=== PATIENT | female | born 1950 | race Caucasian/White ===

== ENCOUNTER 2016-12-31 10:15 | Inpatient (IN) | payer BC, OTHER ==
--- NOTE | 2016-12-31 10:28 | HP ---
SUPERVISING PHYSICIAN: Bubba Lake M.D. CHIEF COMPLAINT: Fever, sore throat, shortness of breath and ankle pain. HISTORY OF PRESENT ILLNESS: Ms. Wolfe is a 66 year-old female patient of Dr. Ann that was seen in the clinic today. She had been seen previously this past weekend on Friday for fever, sore throat and some nasal congestion, and was diagnosed with Group A Strep infection after her Strep screen was positive. She was given Bicillin L-A 1.2 million units and today in the clinic she reports that she has had no improvement in her symptoms, and continues to run 101 fever. Flu swab on Friday was negative. Today, her flu swab showed positive for Influenza A. She was noted to have some continuation of nasal congestion and a fever in the clinic of 100.6. She was satting 87% on room air. She also was complaining of right ankle pain. She noted that this weekend she had tripped over a dog at home and twisted her ankle. X-rays performed in the clinic showed that the patient had a obliquely oriented fracture through the lateral malleolus. X-ray completed in the clinic per radiology interpretation showed changes consistent with chronic obstructive pulmonary disease with some mild cardiomegaly but no infiltrates, pleural effusions or pneumothoraces. Given that the patient has had no improvement in her symptoms and now is showing an infection along with Group A Strep and the newly discovered ankle fracture, the patient was directly admitted to the hospital with concerns for exacerbation of COPD with her having significant dyspnea with minimal exertion showing 87% saturation on room air. She was admitted for exacerbation of COPD for further treatment and evaluation. PAST MEDICAL HISTORY: 1. Hyperlipidemia. 2. Hypertension. 3. Gastroesophageal reflux disease. 4. Osteoarthritis. 5. Rheumatoid arthritis. PAST SURGICAL HISTORY: 1. Cholecystectomy in 1971. 2. Hysterectomy in 1989. CURRENT MEDICATIONS: 1. Ergocalciferol 50,000 units p.o. Wednesdays and Saturdays. 2. Vitamin B complex with C one tablet daily. 3. Nystatin triamcinolone 1 applied p.r.n. 4. Prednisone 5 mg daily. 5. Hydroxychloroquine sulfate 200 mg twice a day. 6. Mobic 7.5 mg twice daily. 7. Folic acid 1 mg daily. 8. Enbrel 50 mg weekly subcue. 9. Calcium with Vitamins D and K 1 tablet daily. 10. Tramadol 50 to 100 mg every 4 hours for pain. 11. Methotrexate 7 each weekly. 12. Nasacort allergy spray 55 mcg nasally twice daily as needed. 13. Omeprazole 40 mg twice daily. 14. Citalopram 20 mg daily. 15. Diovan 160 mg daily. ALLERGIES: AMOXICILLIN. FAMILY HISTORY: Father had a stroke. Mother has history of COPD. 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 She is and has 3 children. She has never smoked. Has never drank alcohol. REVIEW OF SYSTEMS: CONSTITUTIONAL: Positive for fevers. Negative for any fatigue but general malaise is noted. HEENT: Per History of Present Illness. RESPIRATORY: Positive for a recent cough and significant dyspnea with any minima exertion showing hypoxia with 83% saturation at rest on room air. CARDIOVASCULAR: Denies any chest pains, palpitations, syncopal episodes. ABDOMEN: Denies any nausea or vomiting, diarrhea or constipation. EXTREMITIES: Arthralgia secondary to osteoarthritis and rheumatoid arthritis. INTEGUMENT: Denies any rashes. NEUROLOGIC: She denies any syncopal episodes, headaches or neurological deficits or any changes in vision. PHYSICAL EXAMINATION: VITAL SIGNS: Temperature 100.4 on admission with heart rate 112, blood pressure 134/85, respirations 20. She was satting 83% on room air at rest. Admission weight 93.5 kg. GENERAL: The patient appears ill. She is well dressed, well hydrated, well nourished and alert. HEENT: Tympanic membranes are clear bilaterally. Oropharynx shows posterior pharynx is erythematous with no lesions. Oral mucosa is pink and moist. NECK: No jugular venous distention. CHEST: Lung sounds are diminished throughout with diffuse wheezing both inspiratory and expiratory with no notable rhonchi or rales heard. CARDIOVASCULAR: ABDOMEN: Obese but soft, non-tender. Positive bowel sounds. EXTREMITIES: No clubbing or cyanosis. Right lower extremity on the ankle and foot shows some ecchymotic areas and mild edema, but no deformities. Pulses are 2+ bilaterally. NEUROLOGIC: She is alert and oriented times three. Cranial nerves II-XII are grossly intact. Facial features are symmetrical. Extraocular movements are within normal limits. There is no nystagmus. There are no notable neuromotor deficits. LABORATORY: White count completed in clinic shows 7.5 with hemoglobin 13.5, hematocrit 41.5, platelet count was within normal limits. Differential currently shows no left shift. Flu A and flu B shows positive for A, negative for B. She had a group A Strep that was positive on Friday. CMP is pending. RADIOLOGY: A chest x-ray performed in the clinic per radiology interpretation shows no evidence of infiltrates to suggest pneumonia at time of x-ray. Ankle x -ray of her right ankle showing obliquely oriented fracture through the lateral malleolus with ankle mortise intact with extensive soft tissue swelling noted. ASSESSMENT: 1. Acute exacerbation of chronic obstructive pulmonary disease with the patient having Influenza A infection complicated by a Streptococcus A infection with O2 saturation indicating hypoxemia with O2 sat showing 83% on room air at rest after breathing treatments improving to the mid 90s. 2. Influenza A illness. 3. Rheumatoid arthritis treated with multiple immune modulating drugs placing the patient at risk for complications secondary to both an Influenza viral infection and possibly underlying bacterial pneumonia. 4. Right distal fibular fracture status post same level fall. 5. Hypertension. 6. Gastroesophageal reflux disease. PLAN: The patient is directly admitted to the hospital for continuation of treatment and evaluation. She was started on antibiotics parenterally that included Levaquin as well as antiviral coverage with Tamiflu. She will be provided DuoNeb treatments q.i.d. with aggressive pulmonary hygiene and started on Solu-Medrol at 125 mg every 6 hours for 3 doses with anticipation of tapering over the next 48 hours. Will plan to repeat laboratory studies in the morning as well as a chest x-ray. She will be started on DVT prophylaxis as per protocol. Once her medications have been updated and verified in the computer, those will be resumed. Anticipate length of stay to be 2 to 3 days. The right ankle fracture will be treated with a fracture boot which will be then followed in the outpatient setting by Dr. Ann, her primary care provider. Until then, will continue to monitor the patient closely and treat appropriately. #[id number] [facility]
[2016-12-31] MEDS ORDERED: ACETAMINOPHEN 325 MG TAB PO PRN (11:42)
[2016-12-31] MEDS ORDERED: SODIUM CHLORIDE 0.9% (FLUSH) 10 ML SYG IV PRN (11:42)
[2016-12-31] MEDS ORDERED: IBUPROFEN 400 MG TAB PO PRN (11:42)
[2016-12-31] MEDS ORDERED: ALBUTEROL SULFATE 2.5 MG/3 ML VIAL NEB PRN (11:42)
[2016-12-31] MEDS ORDERED: IV SET AND CAP CHANGE INJ INJ SCH (12:00)
[2016-12-31] MEDS: IPRATROPIUM/ALBUTEROL 3 ML VIAL INH SCH ×3 (12:15→21:34)
[2016-12-31] MEDS: HYDROcodone 7.5MG/APAP 325MG 1 EA TAB PO PRN ×2 (12:36→22:17)
[2016-12-31] MEDS: levoFLOXacin 500 MG TAB PO SCH (12:36)
[2016-12-31] MEDS: methylPREDNISolone SODIUM SUC 125 MG/2 ML VIAL IV SCH ×2 (12:39→18:26)
[2016-12-31] MEDS: OSELTAMIVIR 75 MG CAP PO SCH ×2 (12:39→22:04)
--- NOTE | 2016-12-31 18:17 | PCM.CORE ---
Physician DVT/VTE - Nurse DVT Assessment & Total Each Risk Factor Represents 5 Points: Hip,Pelvis,leg Fx <1month Each Risk Factor Represents 1 Point: Age 41-60 Each Risk Factor is 1 Point: Serious Lung disease (pnemonia <1month, COPD, emphysema,etc) DVT Assessment Score: 7 - 5 or more Very High Risk Treatments: Early Ambulation *, Sequential Compression Device Pharmacological: Enoxaparin 40mg SQ Daily
[2016-12-31] MEDS: ENOXAPARIN SODIUM 40 MG/0.4 ML SYG SUBCU SCH (18:26)
[2016-12-31] MEDS: FOLIC ACID 1 MG TAB PO SCH (22:03)
[2016-12-31] MEDS: MELOXICAM 7.5 MG TAB PO SCH (22:04)
[2016-12-31] MEDS: SODIUM CHLORIDE 0.9% (FLUSH) 10 ML SYG IV SCH (22:04)
[2017-01-01] MEDS: methylPREDNISolone SODIUM SUC 125 MG/2 ML VIAL IV SCH ×2 (00:10→05:46)
[2017-01-01] MEDS: OMEPRAZOLE CAP 20 MG CAP PO SCH (05:48)
--- NOTE | 2017-01-01 07:19 | RAD ---
EXAM DESCRIPTION: XR CHEST 2 VIEWS CLINICAL HISTORY: Pneumonia COMPARISON: None Available. TECHNIQUE: Two-views of the chest. FINDINGS: Heart size is normal. Tortuous aorta. Lungs are clear. No acute osseous injury. IMPRESSION: No acute chest process Electronically signed by: Bubba Davidson MD 01/01/2017 07:18
[2017-01-01] MEDS: IPRATROPIUM/ALBUTEROL 3 ML VIAL INH SCH ×4 (08:16→20:51)
[2017-01-01] MEDS ORDERED: VITAMINS D PO SCH (09:00)
[2017-01-01] MEDS ORDERED: CALCIUM PO SCH (09:00)
[2017-01-01] MEDS ORDERED: [UNRECOGNIZED DRUG - OTHER] PO SCH (09:00)
[2017-01-01] MEDS ORDERED: ERGOCALCIFEROL 50000 UNIT PO SCH (09:00)
[2017-01-01] MEDS ORDERED: BENZOCAINE-MENTH LOZ (CEPACOL) 1 EA LOZ MT ONE ×5 (09:40→20:42)
[2017-01-01] MEDS: BENZOCAINE-MENTH LOZ (CEPACOL) 1 EA LOZ MT PRN ×6 (09:47→20:48)
[2017-01-01] MEDS: CITALOPRAM HBR 20 MG TAB PO SCH (09:47)
[2017-01-01] MEDS: MELOXICAM 7.5 MG TAB PO SCH ×2 (09:48→20:48)
[2017-01-01] MEDS: FOLIC ACID 1 MG TAB PO SCH ×2 (09:49→20:49)
[2017-01-01] MEDS: VALSARTAN 80 MG TAB PO SCH (09:50)
[2017-01-01] MEDS: NON-FORMULARY MEDICATION 1 EA MIS PO SCH (09:50)
[2017-01-01] MEDS: [UNRECOGNIZED DRUG - OTHER] PO SCH (09:50)
[2017-01-01] MEDS: B COMPLEX PO SCH (09:50)
[2017-01-01] MEDS: OSELTAMIVIR 75 MG CAP PO SCH ×2 (11:33→20:48)
[2017-01-01] MEDS: levoFLOXacin 500 MG TAB PO SCH (11:33)
[2017-01-01] MEDS: HYDROcodone 7.5MG/APAP 325MG 1 EA TAB PO PRN ×2 (11:33→20:48)
[2017-01-01] MEDS: SODIUM CHLORIDE 0.9% (FLUSH) 10 ML SYG IV SCH ×2 (11:37→20:49)
[2017-01-01] MEDS ORDERED: SODIUM CHLORIDE 0.9% 10 ML VIAL INJ PRN (13:13)
[2017-01-01] MEDS: ENOXAPARIN SODIUM 40 MG/0.4 ML SYG SUBCU SCH (18:11)
--- NOTE | 2017-01-01 20:05 | PN ---
DATE: 01/01/17 SUBJECTIVE: The patient is sitting up in the bed. Her appetite is much better. Her fever is gone at this time. She seems to have more energy. She admits that when she came into the hospital with the elevated temperature of 102 that she does not remember a lot about what was happening at that time. Still with a slight cough but her sore throat is also improved as well. OBJECTIVE: Currently afebrile, pulse 76, blood pressure 152/87, pulse oximetry 94%. Weight is 94.7. LUNGS: Generally clear to auscultation. HEART: Tones regular. ABDOMEN: Soft and obese. The patient is awake and alert, feeling much improved. She has been on a fairly large dose of corticosteroids and this will be tapered and observed. LABORATORY: White count today is 4,600, hemoglobin 13.7. Chemistry shows potassium 4.3, BUN 14, creatinine 0.75, glucose 191. Urinalysis generally clean. Blood cultures are negative. Sputum culture is pending, results by tomorrow. X-RAY: Chest x-ray is within normal limits. ASSESSMENT: 1. Chronic obstructive pulmonary disease with an acute exacerbation. 2. Acute Influenza A viral infection with high fever and worsening symptoms having failed outpatient therapy. 3. Acute Streptococcus A infection of the throat having received Bicillin injection with no adverse reactions at this time. 4. Mild hypoxia with pulse oximetry 83%. 5. Chronic rheumatoid arthritis. 6. Acute distal fibular fracture after a fall recently when struck on the back of the knee by a 60 pound Labrador dog. 7. Hypertension. 8. Gastroesophageal reflux disease. PLAN: The patient does have a stabilization walking boot to assist with the healing process of the fibular fracture of the ankle. She continues on the antiviral as well as antibiotic treatment course and her Solu-Medrol is significantly reduced. The patient will have further followup with Dr. Ann in the clinic after discharge. Reevaluate in the morning and see if outpatient therapy may be continued at that time. #[id number] [facility]
[2017-01-02] MEDS ORDERED: DEXAMETHASONE INJ 10 MG/ML VIAL ONE (04:06)
[2017-01-02] MEDS ORDERED: DEXAMETHASONE INJ 10 MG/ML VIAL PO ONE (04:06)
[2017-01-02] MEDS: OMEPRAZOLE CAP 20 MG CAP PO SCH (06:10)
[2017-01-02] MEDS: IPRATROPIUM/ALBUTEROL 3 ML VIAL INH SCH ×2 (08:10→08:16)
[2017-01-02] MEDS ORDERED: LEVALBUTEROL NEBS 1.25 MG/3 ML VIAL NEB ONE (08:15)
[2017-01-02] MEDS ORDERED: LEVALBUTEROL NEBS 1.25 MG/3 ML VIAL NEB SCH (08:30)
[2017-01-02] MEDS ORDERED: predniSONE 20 MG TAB PO SCH (09:00)
[2017-01-02] MEDS: OSELTAMIVIR 75 MG CAP PO SCH (09:22)
[2017-01-02] MEDS: VALSARTAN 80 MG TAB PO SCH (09:22)
[2017-01-02] MEDS: CITALOPRAM HBR 20 MG TAB PO SCH (09:22)
[2017-01-02] MEDS: FOLIC ACID 1 MG TAB PO SCH (09:22)
[2017-01-02] MEDS: MELOXICAM 7.5 MG TAB PO SCH (09:22)
[2017-01-02] MEDS: B COMPLEX PO SCH (09:23)
[2017-01-02] MEDS: [UNRECOGNIZED DRUG - OTHER] PO SCH (09:23)
[2017-01-02] MEDS: NON-FORMULARY MEDICATION 1 EA MIS PO SCH (09:23)
[2017-01-02] MEDS: SODIUM CHLORIDE 0.9% (FLUSH) 10 ML SYG IV SCH (09:24)
[2017-01-02 10:24] VITALS: O2SAT 98
[2017-01-02] MEDS: levoFLOXacin 500 MG TAB PO SCH (12:49)
[2017-01-02] MEDS: LEVALBUTEROL NEBS 1.25 MG/3 ML VIAL NEB SCH ×2 (13:14→13:17)
--- NOTE | 2017-01-02 14:08 | RAD ---
EXAM DESCRIPTION: Neck,Soft Tissue 01/02/2017 5:33 AM GEOPHYSICAL E LOGGER CLINICAL HISTORY: 66 years, Female, Short of breath COMPARISON: PA and lateral views of the chest January 01, 2017 FINDINGS: The airway is patent and midline.There is normal shouldering of the subglottic tissues without evidence of subglottic edema. There is no prevertebral or paravertebral soft tissue swelling. There are degenerative changes throughout the mid and lower cervical spineLimited evaluation of the calvarium, facial bones, and lung apices demonstrate pulmonary edema in the lung apices IMPRESSION: 1. Unremarkable AP and lateral soft tissue examination of the neck.2. Mild pulmonary edema in the lung apices. Electronically signed by: Hellen Wade MD 01/02/2017 5:34 AM GEOPHYSICAL E LOGGER
[2017-01-02 15:09] VITALS: BP 158/72; TEMP 98.4
--- NOTE | 2017-01-02 16:15 | DS ---
DISCHARGE DIAGNOSIS: 1. Chronic obstructive pulmonary disease with an acute exacerbation requiring initial supplementation with pulmonary hygiene, bronchodilators and corticosteroid administration. 2. Acute influenza A viral infection with high fever and significant symptomatology having failed outpatient therapy. 3. Acute Streptococcus A infection of the pharynx having received Bicillin injection 1.2 million this past weekend. 4. Mild hypoxia with a pulse oximetry of 83% showing significant improvement as treatment course continued. 5. Chronic rheumatoid arthritis. 6. Acute fracture of the right distal fibula after a fall recently when struck on the back of the knee by a 60 pound Labrador dog. 7. History of hypertension. 8. History of gastroesophageal reflux disease. HISTORY OF PRESENT ILLNESS: This 66 year-old white female is admitted to the hospital from Dr. Ann' clinic because of high fever of over 102 degrees, sore throat, nasal congestion, malaise, weakness and failing to respond to outpatient treatment. She had a severe sore throat and was found to have positive Strep screen and was given Bicillin L-A 1.2 million units a couple of days before. Flu swab on the day of admission was positive for Influenza A and the patient was admitted to the hospital because of pulse oximetry desaturation into the mid to low 80s on room air in the clinic. Before admission over the weekend, she had tripped over a dog at home twisting her ankle with resultant bruising of the right ankle and an x-ray showing an oblique-oriented fracture through the lateral malleolus primarily involving the distal fibula. X-rays are present in the [facility] file. The patient was admitted to the hospital and placed on specific pulmonary hygiene and supportive care, especially at the height of her current illness. She was placed on respiratory droplet isolation in an attempt to try to minimize any contagious spread. She was started on Tamiflu and was continued on Levaquin in the hospital until final cultures could be obtained. LABORATORY: White count 4,600, hemoglobin 13.7. Chemistries showed potassium 4.3, BUN 14, creatinine 0.75, glucose 191. Urinalysis is generally clean. Blood cultures were negative. Sputum culture is still pending. Repeat chest x-ray showed no acute findings while soft tissue of the neck showed no acute findings either except for some increased shadows within the region of the supraglottic region in the epiglottis. HOSPITAL COURSE: The patient was very ill and her illness, malaise and myalgia seemed to parallel the course of her febrile illness. As the fever came down, she started to begin to feel a little better. She was given very high doses initially of corticosteroids which may have also contributed a little bit to some confusion state and was eventually stopped. On the morning of discharge, she did awaken about 4:30 with a secretion with partial blockage of her airway which was cleared as she was able to swallow the secretions and get it away from the epiglottis region. Subsequently she was able to be fully awake and alert, and talk without any hoarseness. Her fever also was gone at the time of discharge. She was ready for outpatient management and followup at the time of discharge. PLAN: The patient was discharged home to see Dr. Ann the middle of next week. She is to drink plenty of fluids. Try to take some extra vitamin C, selenium, zinc and multivitamins in the interim. She is to continue Tamiflu 75 mg b.i.d. for an additional 3 days and prescription given. Return if not improving. Close followup suggested. #[id number] [facility]
[2017-01-07] MEDS ORDERED: NON-FORMULARY MEDICATION 1 EA MIS (Etanercept [Enbrel] 50 MG) SC SCH (09:00)
[2017-01-07] MEDS ORDERED: [UNRECOGNIZED DRUG - OTHER] PO SCH (09:00)
--- NOTE | 2017-01-26 23:50 | RAD ---
EXAM DESCRIPTION: Neck,Soft Tissue 01/02/2017 5:33 AM EMPLOYMENT RECRUITER CLINICAL HISTORY: 66 years, Female, Short of breath COMPARISON: PA and lateral views of the chest January 01, 2017 FINDINGS: The airway is patent and midline.There is normal shouldering of the subglottic tissues without evidence of subglottic edema. There is no prevertebral or paravertebral soft tissue swelling. There are degenerative changes throughout the mid and lower cervical spineLimited evaluation of the calvarium, facial bones, and lung apices demonstrate pulmonary edema in the lung apices IMPRESSION: 1. Unremarkable AP and lateral soft tissue examination of the neck.2. Mild pulmonary edema in the lung apices. Electronically signed by: Hellen Wade MD 01/02/2017 5:34 AM EMPLOYMENT RECRUITER
== END 2017-01-02 15:35 | disposition home or self-care (01) | DRG 192 ==
LOC: MS 10:15
PROVIDERS: ADMIT Family Medicine; ATTEND Emergency Medicine
DX: J44.1 Chronic obstructive pulmonary disease with (acute) exacerbation (principal); J11.1 Influenza due to unidentified influenza virus with other respiratory manifestations; E78.5 Hyperlipidemia, unspecified; K21.9 Gastro-esophageal reflux disease without esophagitis; M19.90 Unspecified osteoarthritis, unspecified site; I10 Essential (primary) hypertension; M06.9 Rheumatoid arthritis, unspecified; J02.0 Streptococcal pharyngitis; S82.61XA Displaced fracture of lateral malleolus of right fibula, initial encounter for closed fracture; Z79.52 Long term (current) use of systemic steroids; Z88.1 Allergy status to other antibiotic agents; W01.0XXA Fall on same level from slipping, tripping and stumbling without subsequent striking against object, initial encounter; Y92.009 Unspecified place in unspecified non-institutional (private) residence as the place of occurrence of the external cause

== ENCOUNTER → 2019-03-18 | Outpatient (CLI) | payer BC, OTHER | LOC: GMAJ 15:17 | PROVIDERS: ATTEND Family Medicine | DX: I10 Essential (primary) hypertension (principal); D51.9 Vitamin B12 deficiency anemia, unspecified; E78.2 Mixed hyperlipidemia; E11.9 Type 2 diabetes mellitus without complications; E03.9 Hypothyroidism, unspecified; E55.9 Vitamin D deficiency, unspecified ==

== ENCOUNTER → 2019-07-28 | Outpatient (CLI) | payer BC, OTHER | LOC: GMAJ 10:47 | PROVIDERS: ATTEND Family Medicine | DX: E03.9 Hypothyroidism, unspecified (principal); I10 Essential (primary) hypertension; E11.9 Type 2 diabetes mellitus without complications; E78.2 Mixed hyperlipidemia ==

== ENCOUNTER 2019-09-19 12:13 | Emergency (ER) | payer BC, OTHER ==
[2019-09-19] MEDS ORDERED: NITROGLYCERIN 0.4 MG 25 EA TAB SL ONE (12:15)
[2019-09-19] MEDS: NITROGLYCERIN 0.4 MG 25 EA TAB SL ONE (12:20)
[2019-09-19] MEDS ORDERED: NITROGLYCERIN/D5W IV 250 ML IVS ONE (12:22)
[2019-09-19 12:23] VITALS: O2SAT 98
[2019-09-19] MEDS: NITROGLYCERIN/D5W IV 50,000 MCG in PREMIX BOTTLE 1 BOTTLE IVS SCH (12:25)
[2019-09-19] MEDS: ASPIRIN TABLET 325 MG TAB PO ONE (12:27)
[2019-09-19] MEDS: HYDROmorphone HCL INJ 2 MG/ML VIAL IV ONE (12:31)
[2019-09-19] MEDS ORDERED: SODIUM CHLORIDE 0.9% 1000ML 1,000 ML ONE (12:33)
[2019-09-19] MEDS ORDERED: TENECTEPLASE 50 MG VIAL ONE (12:40)
[2019-09-19] MEDS: SODIUM CHLORIDE 0.9% 1000ML 1,000 ML IVS PRN (12:42)
[2019-09-19] MEDS ORDERED: MAGNESIUM SULFATE PREMIX 2GM 50 ML IVPB ONE (12:48)
[2019-09-19] MEDS: TENECTEPLASE 50 MG VIAL IV ONE (12:50)
[2019-09-19] MEDS: MAGNESIUM SULFATE PREMIX 2GM 2 GM in PREMIX BAG 1 BAG IVPB ONE (12:52)
[2019-09-19] MEDS ORDERED: HEPARIN SODIUM (PORCINE) 5,000 U/ML VIAL ONE (12:54)
[2019-09-19] MEDS ORDERED: HEPARIN PREMIX 500 ML ONE (12:54)
[2019-09-19] MEDS: POTASSIUM CHLORIDE ELIXIR 20 MEQ/15 ML UD PO ONE (12:54)
--- NOTE | 2019-09-19 12:55 | ED.PDOC ---
History of Present Illness - General Chief Complaint: Chest Pain/RI Stated Complaint: chest pain Time Seen by Provider: 09/19/19 12:17 Source: patient Exam Limitations: no limitations - History of Present Illness Initial Comments: the patient is 69-year-old female presenting to the emergency room secondary to chest pain starting at 10 AM this morning. The pain is severe 10 out of 10. The patient actually collapsed in the lobby as she was walking on. She is awake and alert but diaphoretic and pale. Pain is still a 10 out of 10. No palpitations. No cardiac history. She is a diabetic. She does have rheumatoid. No blood thinners are taken. No history of any aortic issues. No history of any previous myocardial infarctions. No longer problems according to her. No history of any recent bleeding orremote bleeding. No current oncological processes. Timing/Duration: 1-3 hours Severity: severe Improving Factors: nothing Worsening Factors: nothing Associated Symptoms: chest pain, malaise, shortness of breath, weakness Allergies/Adverse Reactions: Allergies Amoxicillin Allergy (Verified 12/31/16 13:21) Home Medications: Ambulatory Orders B Complex W/ C [B Complex with C] 1 tab PO DAILY 12/31/16 Calcium W/ Vitamins D & K [Viactiv] 1 chw PO DAILY 12/31/16 Citalopram Hydrobromide 20 mg PO DAILY 12/31/16 Ergocalciferol 50,000 unit PO WESA@0900 12/31/16 Etanercept [Enbrel] 50 mg SC WKLY 12/31/16 Folic Acid 1 mg PO BID 12/31/16 Hydroxychloroquine Sulfate [Hydroxychloroquine Sulfat] 200 mg PO BID 12/31/16 Meloxicam [Mobic] 7.5 mg PO BID 12/31/16 Methotrexate Sodium [Methotrexate] 7 ea PO WKLY 12/31/16 Nystatin-Triamcinolone [Nystatin/Triamcinolone 938536-1.1 Unit/gm-%] 1 cre EX DAILY PRN 12/31/16 Omeprazole 40 mg PO BID 12/31/16 Prednisone 5 mg PO DAILY PRN 12/31/16 Tramadol HCl 50 - 100 mg PO Q4H PRN 12/31/16 Triamcinolone Acetonide (Nasal [Nasacort Allergy 24Hr] 55 mcg NA BID PRN 12/31/16 Valsartan [Diovan] 160 mg PO DAILY 12/31/16 Oseltamivir Phosphate [Tamiflu] 75 mg PO BID #6 cap 01/02/17 Review of Systems - Review of Systems Constitutional: States: diaphoresis, malaise, weakness EENTM: States: no symptoms reported Respiratory: States: short of breath Cardiology: States: chest pain Gastrointestinal/Abdominal: States: no symptoms reported Genitourinary: States: no symptoms reported Musculoskeletal: States: no symptoms reported Skin: States: no symptoms reported Neurological: States: other - syncope Endocrine: States: no symptoms reported All other Systems: No Change from Baseline Past Medical History (General) - Patient Medical History Hx Seizures: No Hx Stroke: No Hx of COPD: No Hx Congestive Heart Failure: No Hx Hypertension: Yes Hx Diabetes: No Hx MRSA: No Surgical History: cholecystectomy - Vaccination History Hx Influenza Vaccination: Yes - 09/18/19 Hx Pneumococcal Vaccination: Yes - Social History Hx Tobacco Use: No Hx Emotional Abuse: No Family Medical History - Family History Mother Family History: Unknown Physical Exam - Physical Exam General Appearance: Other - the patient is drowsy but alert now. She is pale. She is in obvious distress. 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 Chest pain did improve a little bit initially with the first nitroglycerin. Blood pressures however have continued to fall and nitroglycerin as well has had to be discontinued. She is receiving a fluid bolus for the hypotension. She is receiving oral potassium for hypokalemia. She will receive IV magnesium. She is being started on IV heparin. She has received a dose of TNKase. She has received a dose of aspirin. She is still in significant distress and unstable however the patient needs to see cardiology and probably at least have a cardiac catheterization being that at this point the TNKase does not appear to have relieved the STEMI. Patient is being transferred for higher level of care, specialty care. I have discussed the patient with Dr. Maxwell. Critical care time spent 35 minutes excluding otherwise notable procedures. - Results/Orders Results/Orders: radiology interpretation chest x-ray is pending. I see no pneumothorax. I see no obvious widening of the mediastinum. I see no significant effusion. I see no obvious infiltrate. Initial EKG shows what appears to be ST elevation in the anterior leads. This is significantly changed from her previous EKG done with her primary care doctor approximately one year ago. The left bundle branch block is old. The ST elevation is new. Repeat serial EKGs confirm the persistence of the ST elevation. She still has significant ST elevation after the Tnkase. She is in a normal sinus rhythm at 75 bpm initially. There does appear to be Q waves in lead 3 but that appears to be old. Laboratory Tests 09/19/19 09/19/19 09/19/19 12:20 12:20 12:20 WBC 11.6 H RBC 3.99 L Hgb 12.2 Hct 36.0 MCV 90.1 MCH 30.5 MCHC 33.8 RDW 13.2 Plt Count 325 MPV 7.9 Absolute Neuts (auto) 7.60 H Absolute Lymphs (auto) 2.80 Absolute Monos (auto) 0.80 Absolute Eos (auto) 0.10 Absolute Basos (auto) 0.20 H Neutrophils % 66.0 Lymphocytes % 24.2 Monocytes % 7.3 Eosinophils % 1.2 Basophils % 1.3 PT 9.7 INR 0.97 PTT (SP) 22.1 D-Dimer, Quantitative 0.55 H* Sodium 137 Potassium 2.9 L Chloride 97 L Carbon Dioxide 21 Anion Gap 21.9 H BUN 13 Creatinine 0.97 BUN/Creatinine Ratio 13.4 Random Glucose 168 H Serum Osmolality 277.8 Calcium 9.5 Magnesium 1.6 L Total Bilirubin 0.8 AST 29 ALT 17 Alkaline Phosphatase 63 Creatine Kinase 78 CK-MB (CK-2) 2.9 CK-MB (CK-2) % Not Reportable Troponin I 0.03 B-Natriuretic Peptide 31.8 Serum Total Protein 7.1 Albumin 4.1 Globulin 3.0 Albumin/Globulin Ratio 1.4 Departure - Departure Clinical Impression: Cardiogenic shock STEMI (ST elevation myocardial infarction) Qualifiers: Involved coronary artery: unspecified coronary artery Qualified Code(s): I21.3 - ST elevation (STEMI) myocardial infarction of unspecified site Disposition: Transfer to Hospital Condition: Serious Departure Forms: ED Discharge - Pt. Copy, Patient Portal Self Enrollment Referrals: Flavio Ann MD [Primary Care Provider] - 1-2 Weeks Home Medications: Ambulatory Orders B Complex W/ C [B Complex with C] 1 tab PO DAILY 12/31/16 Calcium W/ Vitamins D & K [Viactiv] 1 chw PO DAILY 12/31/16 Citalopram Hydrobromide 20 mg PO DAILY 12/31/16 Ergocalciferol 50,000 unit PO WESA@0900 12/31/16 Etanercept [Enbrel] 50 mg SC WKLY 12/31/16 Folic Acid 1 mg PO BID 12/31/16 Hydroxychloroquine Sulfate [Hydroxychloroquine Sulfat] 200 mg PO BID 12/31/16 Meloxicam [Mobic] 7.5 mg PO BID 12/31/16 Methotrexate Sodium [Methotrexate] 7 ea PO WKLY 12/31/16 Nystatin-Triamcinolone [Nystatin/Triamcinolone 890892-5.1 Unit/gm-%] 1 cre EX DAILY PRN 12/31/16 Omeprazole 40 mg PO BID 12/31/16 Prednisone 5 mg PO DAILY PRN 12/31/16 Tramadol HCl 50 - 100 mg PO Q4H PRN 12/31/16 Triamcinolone Acetonide (Nasal [Nasacort Allergy 24Hr] 55 mcg NA BID PRN 12/31/16 Valsartan [Diovan] 160 mg PO DAILY 12/31/16 Oseltamivir Phosphate [Tamiflu] 75 mg PO BID #6 cap 01/02/17 Transfer to Outside Facility - Transfer Information Decision to Transfer Date: 09/19/19 Decision to Transfer Time: 12:35 Reason for Transfer: required specialist not available Accepting Facility: [facility]
[2019-09-19] MEDS ORDERED: HEPARIN PREMIX 25,000 UNITS in PREMIX BAG 1 BAG IVS SCH (13:00)
[2019-09-19] MEDS: HEPARIN SODIUM (PORCINE) 5,000 U/ML VIAL IV ONE (13:06)
[2019-09-19] MEDS: HEPARIN PREMIX 25,000 UNITS in PREMIX BAG 1 BAG IVS SCH (13:07)
--- NOTE | 2019-09-19 13:24 | RAD ---
EXAM DESCRIPTION: Chest,1 View CLINICAL HISTORY: chest pain and collapse COMPARISON: January 01, 2017 FINDINGS: The cardiac silhouette is enlarged, new or worse from the prior study. Mediastinal contours are otherwise unremarkable. Limited visualization of the left lung base due to superimposed mediastinal structures, but no airspace consolidation or pleural effusion is identified. The bronchovascular markings are within normal limits, and the lungs are not hyperinflated. There is no pneumothorax or acute fracture. IMPRESSION: Enlarged cardiac silhouette, new or worse from January 20, 2017 Limited visualization of the left lung base. No additional intrathoracic abnormality. Lateral chest radiograph may be helpful for further evaluation. Electronically signed by: Narinder Menard MD 09/19/2019 1:23 PM CDT
[2019-09-19 13:39] VITALS: BP 123/74; TEMP 96
== END 2019-09-19 13:37 | disposition short-term general hospital (02) ==
LOC: ER 12:13
DX: I21.3 ST elevation (STEMI) myocardial infarction of unspecified site (principal); R57.0 Cardiogenic shock; I95.9 Hypotension, unspecified; E87.6 Hypokalemia; I44.7 Left bundle-branch block, unspecified; I10 Essential (primary) hypertension; Z79.899 Other long term (current) drug therapy; Z88.0 Allergy status to penicillin
CPT/HCPCS: 36415; 71045; 80053; 82550; 82553; 83735; 83880; 84484; 85025; 85379; 85610; 85730; 93005; J1170; J1644; J3101; J3475; J7030

== ENCOUNTER → 2019-12-16 | Outpatient (CLI) | payer BC, OTHER | LOC: GMAJ 10:47 | PROVIDERS: ATTEND Family Medicine | DX: E03.9 Hypothyroidism, unspecified (principal); E11.9 Type 2 diabetes mellitus without complications; E78.1 Pure hyperglyceridemia; I10 Essential (primary) hypertension ==

== ENCOUNTER → 2020-05-02 | Outpatient (CLI) | payer BC, OTHER | LOC: GMAJ 14:35 | PROVIDERS: ATTEND Family Medicine | DX: D51.9 Vitamin B12 deficiency anemia, unspecified (principal); M06.09 Rheumatoid arthritis without rheumatoid factor, multiple sites; E55.9 Vitamin D deficiency, unspecified; D50.9 Iron deficiency anemia, unspecified; E11.9 Type 2 diabetes mellitus without complications; I50.22 Chronic systolic (congestive) heart failure ==

== ENCOUNTER 2020-10-23 10:19 | Outpatient (CLI) | payer BC, OTHER ==
[2020-10-24 14:01] VITALS: O2SAT 96
[2020-10-24 15:08] VITALS: BP 115/74; TEMP 98.2
== END 2020-10-24 15:15 | disposition home or self-care (01) ==
LOC: INFRM 10:19
PROVIDERS: ATTEND Family Medicine
DX: U07.1 COVID-19 (principal); E11.9 Type 2 diabetes mellitus without complications; I25.10 Atherosclerotic heart disease of native coronary artery without angina pectoris; Z23 Encounter for immunization

== ENCOUNTER → 2020-12-29 | Outpatient (CLI) | payer BC, OTHER | LOC: GMAJ 11:23 | PROVIDERS: ATTEND Family Medicine | DX: E03.9 Hypothyroidism, unspecified (principal); I10 Essential (primary) hypertension; E78.00 Pure hypercholesterolemia, unspecified; I50.22 Chronic systolic (congestive) heart failure; E11.9 Type 2 diabetes mellitus without complications ==